=== PATIENT | male | born 1975 | race Asian ===

== ENCOUNTER 2023-03-11 07:25 | Day surgery (SDC) | payer OTHER ==
[2023-03-06 11:03] VITALS: BMI 38.4
[2023-03-11] MEDS ORDERED: LIDOCAINE HCL/PF 2% SDV 5ML VIAL ONE (07:32)
[2023-03-11] MEDS ORDERED: PROPOFOL 160 ML ONE (07:33)
[2023-03-11 08:52] VITALS: TEMP 97
[2023-03-11 09:34] VITALS: BP 120/76; PULSE 80; RESP 17
== END 2023-03-11 09:35 | disposition home or self-care (01) ==
LOC: FASU-ENDO 07:25
PROVIDERS: ATTEND Internal Medicine Gastroenterology
PROC: 0DJD8ZZ Inspection of Lower Intestinal Tract, Via Natural or Artificial Opening Endoscopic (ICD-10-PCS; principal; 2023-03-11 08:26)
DX: Z12.11 Encounter for screening for malignant neoplasm of colon (principal); Z83.719 Family history of colon polyps, unspecified